=== PATIENT | female | born 1985 | race Caucasian/White ===

== ENCOUNTER 2018-02-06 08:05 | Inpatient (IN) | payer BC ==
--- NOTE | 2018-02-06 08:48 | HP ---
General Information - Reason for Visit Postdates IOL - General Information Maternal Age: 32 Grav: 1 Para: 0 SAB: 0 IEA: 0 Estimated Due Date: 01/30/18 Determined By: LMP Gestational Age in Weeks/Days: 41 weeks Maternal Blood Type and Rh: O Positive - Results this Serology/RPR Result: Non-Reactive Rubella Result: Immune HBsAg Result: Negative HIV Result: Negative GBS Culture Result: Negative Past Medical History Delivery History: See Records Delivery History Comment: primip Pertinent Past Medical History: See Records Past Medical History Comment: MVP Asthma Migraine with aura Costochondritis Narcolepsy with sleep paralysis Sleep apnea Pertinent Past Surgical History: None Pertinent Family History: See Records Family History Comment: Father: high cholesterol Mother: HTN, endometriosis Sister: Depression PGM: . lung cancer PGF: . PR MGM: . valvular cardiomyopathy and aortic valve disease - Antepartal Records Antepartal Records: Reviewed, Complicated by: - GDM - A1 Review of Systems Constitutional: Comfortable CV Complaint: No Respiratory: Shortness of Breath: No Gastrointestinal: No Nausea/Vomiting, Normal Bowel Movement Genitourinary: No Dysuria, No Bleeding, No Leaking Fluid, Spotting Musculoskeletal: No Complaint Neurological: No Headache, No Visual Changes Movement: Normal Exam Allergies/Adverse Reactions: Allergies amoxicillin Allergy (Verified 02/06/18 08:13) Rash Penicillins Allergy (Verified 02/06/18 08:13) Rash BP: 122/84 HR: 93 T: 98.4 RR: 18 SpO2: 100% on RA - Measurements Height: 5 ft 2 in Weight: 125 lb Weight in lbs: [phone] Body Mass Index (BMI): 22.8 Pre- Weight: 100 lb Weight Gained This : 25 lbs and 0 ozs - Exam Breast: Breast Exam Deferred CVA: No CVA Tenderness Extremities: No Edema Heart: Normal Rhythm/Heart Sounds - Known murmur, cardiology consult WNL in HEENT: No Significant Findings Lungs: Clear Bilaterally Rectal: Rectal Exam Deferred Reflexes: DTR 2+ Thyroid: No Thyromegaly - Abdominal Exam Abdomen Exam: Non-Tender, Fundal Height Consistent with Dates - Ultrasound/Biophysical Profile Ultrasound Status: Not Done Targeted Exam Findings See L&D Outpatient Visit Provider Note for Findings: Yes - Dated 02/05/18 Estimated Weight: 7-7.5lbs Cervical Exam: 2cm Effacement: 80% Station: +1 Presenting Part: Vertex - per Bre Flores CNM 02/05/18 with cervidil removal. Pt declines repeat exam this AM Membrane Status: Intact Sterile Speculum Exam: Not done Bleeding/Discharge: None EFM Findings - External Monitor Findings Baseline Heart Rate: 130 External Monitor Findings: Accelerations Present, No Pattern of Variable or Late Decelerations, Variability Moderate, Baseline Stable External Monitor Findings Comment: No evidence of metabolic acidemia Contractions: Irregular - mild Assessment/Plan - Assessment IUP at 41 weeks here for postdates IOL. Cervix favorable s/p Cervidil 02/05/2018 - Obstetrical Risk Factors Obstetrical Risk Factors: Post-Dates, Diabetes - A1 - Plan Plan: Induction Plan Comment: Admit. PARQ IV pitocin. Pt and agree. Will place IV and start IOL. Anticipate - Date/Time of Admission Date of Admission: 02/06/18 Time of Admission: 08:10
[2018-02-06] MEDS ORDERED: Buffered Lidocaine 0.9% SYRIN* 5 ML/SYR SYRINGE ONE (09:00)
[2018-02-06] MEDS ORDERED: Oxytocin in LR* 20 UNITS/1,000 ML BAG IVPB SCH ×2 (09:00→23:45)
--- NOTE | 2018-02-06 09:06 | PTEDU ---
Patient Name: ANA MARÍA CHILDERS ANA MARÍA CHILDERS selected video: Never Ever Shake a Baby to view on 02/06/2018 at 9:05:37 AM from [id number]
--- NOTE | 2018-02-06 09:29 | PTEDU ---
Patient Name: ANA MARÍA CHILDERS ANA MARÍA CHILDERS selected video: Never Ever Shake a Baby to view on 02/06/2018 at 9:28:39 AM from [id number]
[2018-02-06 09:34] LABS: ABS Basophils 0 10^3/ul (0-0.2); ABS Eosinophils 0 10^3/ul (0-0.6); ABS Lymphocytes 1.3 10^3/ul (1.0-4.8); ABS Monocytes 0.7 10^3/ul (0-0.8); ABS Neutrophils 10.5 10^3/ul (1.5-7.7); ABS Nucleated RBC 0 10^3/ul; Eosinophil % 0.2 % (0-6); Hematocrit 38 % (35-47); Hemoglobin 12.3 g/dl (12.0-16.0); Lymphocyte % 10.3 % (25-47); Mean Corpuscular HGB Conc 33 g/dl (31-36); Mean Corpuscular Hemoglobin 27 pg (27-31); Mean Corpuscular Volume 81 fL (80-97); Mean Platelet Volume 10.8 um3 (7.4-10.4); Nucleated Red Blood Cells % 0.1; Platelet Count 136 10^3/ul (150-450); Red Blood Count 4.63 10^6/ul (4.00-5.40); Red Cell Distribution Width 16 % (10.5-15); White Blood Count 12.5 10^3/ul (3.5-10.8)
[2018-02-06] MEDS ORDERED: OBEPIDURAL* 250 ML EPIDURAL ONE (15:47)
--- NOTE | 2018-02-06 15:53 | PN ---
Progress Note - Progress Note Date of Service: 02/06/18 Note: S: Pt increasingly uncomfortable since 1500. Might be interested in discussing pain mgmt options O: BP 119/86 HR 101 T 98.4 RR 18 FHT 130bpm. Moderate variability. +Accels. No decels UCs q 3min. IV pitocin reduced from 12mu/min to 6mu/min VE: difficult to assess due to pt discomfort A: IUP at 41 weeks in early active labor No evidence of metabolic acidemia P: Reviewed options for pain mgmt including hydrotherapy vs. IV pain medication vs. nitrous oxide vs. epdiural. All ?s answered. Pt requests epidural. Anesthesia paged for bedside consult. Will re-attempt VE once pt comfortable. Pt agrees.
[2018-02-06] MEDS ORDERED: Calcium Carbonate CHEW TAB* 500 MG (TUMS) PO ONE ×2 (16:50→20:32)
[2018-02-06] MEDS: Calcium Carbonate CHEW TAB* 500 MG (TUMS) ONE ×2 (16:52→20:30)
[2018-02-06] MEDS ORDERED: Sodium Citrate/Citric Acid* 15 ML UDC PO PRN (17:00)
[2018-02-06] MEDS ORDERED: Phenylephrine IV* 40 MCG/ML 10 ML SYRINGE IV PUSH PRN (17:00)
[2018-02-06] MEDS ORDERED: Famotidine IV* 10 MG/ML 2 ML (20 mg) IV PRN (17:00)
[2018-02-06] MEDS ORDERED: Famotidine TAB* 20 MG PO PRN (17:00)
[2018-02-06] MEDS ORDERED: OBEPIDURAL* 250 ML EPIDURAL SCH (17:00)
--- NOTE | 2018-02-06 18:05 | PN ---
Progress Note - Progress Note Date of Service: 02/06/18 Note: S: Pt more comfortable s/p epidural O: VSS, afebrile FHT: 130bpm. Moderate variability. +accels. No decels UCs q 3 min. IV pit at 6mu/min VE per Dr Bloom at 1724 6cm/100%/vtx +1 AROM clear A: IUP at 41 weeks in active labor No evidence of metabolic acidemia P: Continue IV pitocin. Anticipate
--- NOTE | 2018-02-06 20:34 | PN ---
Progress Note - Progress Note Date of Service: 02/06/18 Note: Quick Note Pt complete and pushing well with coaching. FHT Cat II with rare variable decels but moderate variability maintained. Anticipate
[2018-02-06] MEDS ORDERED: Glycerin ADULT SUPP PR PRN (23:51)
[2018-02-06] MEDS ORDERED: Acetaminophen TAB* 325 MG PO PRN (23:51)
--- NOTE | 2018-02-07 05:21 | PROCNOTE ---
[facility] OB: Delivery Note - Nursery Level of Nursery: Regular/Bedside - Perineum Perineal Injury: Right Mediolateral Perineal Repair: By Delivering Practioner - Events Delivery Events of Note: Pitocin During Labor, Pushed > 3 Hours Delivery Events of Note Comment: MULTIPLE VARIABLE DECELERATIONS WITH PUSHING / MODERATE VARIABILTY / MATERNAL EXHAUSTION AND INEFFECTIVE PUSHING. OPTION OF VACUM DELVERY DISCUSSED INCLUDING BUT NOT LIMITED TO TEARS OF SUPERFICIAL DEEP VEINS IN VERTEX/ PERINEAL INJURY / EPISIOTOMY NEED. QUESTIONS ANSWERED. - Additional Delivery Notes Additional Delivery Notes: REPAIR WITH 3-0 AND 2 VICRYL /3- VICRYL RAPIDE/ SPHINCTER INTACT/ NO STITCHES IN RECTUM
[2018-02-07 06:49] LABS: ABS Basophils 0 10^3/ul (0-0.2); ABS Eosinophils 0 10^3/ul (0-0.6); ABS Lymphocytes 1.4 10^3/ul (1.0-4.8); ABS Monocytes 1.1 10^3/ul (0-0.8); ABS Neutrophils 17.2 10^3/ul (1.5-7.7); ABS Nucleated RBC 0 10^3/ul; Eosinophil % 0 % (0-6); Hematocrit 28 % (35-47); Hemoglobin 9.1 g/dl (12.0-16.0); Mean Corpuscular HGB Conc 32 g/dl (31-36); Mean Corpuscular Hemoglobin 26 pg (27-31); Mean Corpuscular Volume 82 fL (80-97); Mean Platelet Volume 10.2 um3 (7.4-10.4); Nucleated Red Blood Cells % 0; Platelet Count 118 10^3/ul (150-450); Red Blood Count 3.45 10^6/ul (4.00-5.40); Red Cell Distribution Width 16 % (10.5-15); White Blood Count 19.8 10^3/ul (3.5-10.8)
[2018-02-07] MEDS ORDERED: Simethicone TAB* 80 MG TAB.CHEW PO SCH (08:30)
[2018-02-07] MEDS: Ferrous Gluconate TAB* 324 MG TAB PO SCH ×2 (09:24→21:28)
[2018-02-07] MEDS: Docusate CAP* 100 MG PO SCH ×3 (09:24→21:28)
[2018-02-07] MEDS: Ibuprofen TAB* 600 MG PO PRN ×3 (09:25→21:27)
[2018-02-07] MEDS: Witch Hazel PAD* JAR TOPICAL PRN (09:39)
[2018-02-07] MEDS: Dibucaine 1% 28.35 GM TUBE PR PRN (09:39)
[2018-02-08 08:14] VITALS: BP 122/80
[2018-02-08] MEDS: Ferrous Gluconate TAB* 324 MG TAB PO SCH (08:24)
[2018-02-08] MEDS: Ibuprofen TAB* 600 MG PO PRN ×2 (08:25→14:17)
[2018-02-08] MEDS: Docusate CAP* 100 MG PO SCH ×2 (08:26→14:03)
[2018-02-08] MEDS: Witch Hazel PAD* JAR TOPICAL PRN (13:16)
[2018-02-08] MEDS: Dibucaine 1% 28.35 GM TUBE PR PRN (13:16)
== END 2018-02-08 17:07 | disposition home or self-care (01) | DRG 560 ==
LOC: MCHOBOUT 08:05 → MCHOB 08:10
PROVIDERS: ADMIT Midwife; ATTEND Obstetrics & Gynecology
PROC: 10E0XZZ Delivery of Products of Conception, External Approach (ICD-10-PCS; principal; 2018-02-06)
PROC: 3E033VJ Introduction of Other Hormone into Peripheral Vein, Percutaneous Approach (ICD-10-PCS; 2018-02-06)
PROC: 10907ZC Drainage of Amniotic Fluid, Therapeutic from Products of Conception, Via Natural or Artificial Opening (ICD-10-PCS; 2018-02-06)
PROC: 0W8NXZZ Division of Female Perineum, External Approach (ICD-10-PCS; 2018-02-06)
DX: O48.0 Post-term pregnancy (principal); Z37.0 Single live birth; O75.81 Maternal exhaustion complicating labor and delivery; O24.429 Gestational diabetes mellitus in childbirth, unspecified control; G47.419 Narcolepsy without cataplexy; Z3A.41 41 weeks gestation of pregnancy
CPT/HCPCS: 36415; 85025; 86850; 86900; 86901; A9270-GY

== ENCOUNTER 2018-03-14 12:12 | Emergency (ER) | payer BC ==
[2018-03-14] MEDS ORDERED: NS 0.9% 1000 ML*IV.FLUID IV ONE (12:18)
[2018-03-14 12:42] LABS: ABS Basophils 0 10^3/ul (0-0.2); ABS Eosinophils 0.1 10^3/ul (0-0.6); ABS Lymphocytes 0.9 10^3/ul (1.0-4.8); ABS Monocytes 0.8 10^3/ul (0-0.8); ABS Neutrophils 10.1 10^3/ul (1.5-7.7); ABS Nucleated RBC 0 10^3/ul; Eosinophil % 0.7 % (0-6); Hematocrit 36 % (35-47); Hemoglobin 11.6 g/dl (12.0-16.0); Lymphocyte % 7.4 % (25-47); Mean Corpuscular HGB Conc 32 g/dl (31-36); Mean Corpuscular Hemoglobin 25 pg (27-31); Mean Corpuscular Volume 79 fL (80-97); Mean Platelet Volume 8.4 fL (7.4-10.4); Nucleated Red Blood Cells % 0; Platelet Count 280 10^3/ul (150-450); Red Blood Count 4.58 10^6/ul (4.00-5.40); Red Cell Distribution Width 16 % (10.5-15); White Blood Count 11.8 10^3/ul (3.5-10.8)
[2018-03-14 12:50] LABS: INR 0.98 (0.77-1.02)
--- NOTE | 2018-03-14 15:18 | ED ---
HPI Febrile Illness - HPI Summary HPI Summary: Patient presents per request of Dr. Todd for U/S as he's been following her for a left breast mastitis. She was taking clindamycin last week and has completed the course however she has developed a fever this morning of 101F and had chills last night. Her heart rate also appears to be elevated at time of check in today. Her blood pressure is stable. She is currently afebrile although she reports she took ibuprofen prior to arrival. She denies any upper extremity pain or swelling as well as chest pain, shortness of breath, upper back or lower back pain, and abdominal pain. Aside from antibiotics for her mastitis, she is been going to physical therapy and receiving ultrasound. This seemed to be getting better until today. She was also recently diagnosed with UTI by [employer] ACC[employer] MANAGER which returned with 1-10,000 MRSA. She was started on Bactrim and feels her symptoms are improving although they were mild to begin with. She is 5 weeks with a vaginal delivery requiring episiotomy. She was seen for post delivery follow- up by the midwives and her vaginal area is healing well. She denies any concern for new vaginal swelling, pain, discharge. She has been pumping exclusively as her infant is having a difficult time latching. - History of Current Complaint Chief Complaint: EDGeneral Time Seen by Provider: 03/14/18 12:20 Hx Obtained From: Patient Pain Intensity: 3 - Allergy/Home Medications Allergies/Adverse Reactions: Allergies Allergy/AdvReac Type Severity Reaction Status Date / Time amoxicillin Allergy Rash Verified 03/14/18 12:14 Penicillins Allergy Rash Verified 03/14/18 12:14 PMH/Surg Hx/FS Hx/Imm Hx Previously Healthy: No - mastitis, Lt side; UTI Endocrine/Hematology History: Denies: Hx Anticoagulant Therapy, Hx Blood Disorders, Autoimmune Disease - Immunization History Immunizations Up to Date: Yes Infectious Disease History: No Infectious Disease History: Denies: Traveled Outside the [place] in Last 30 Days - Social History Occupation: Employed Full-time - [employer] - on maternity leave Lives: With Family Alcohol Use: None Hx Substance Use: No Substance Use Type: Reports: None Hx Tobacco Use: No Smoking Status (MU): Never Smoked Tobacco Review of Systems Positive: Fever, Chills Cardiovascular: Negative Respiratory: Negative Gastrointestinal: Negative Positive: see HPI Skin: Other - mastitis Psychological: Normal All Other Systems Reviewed And Are Negative: Yes Physical Exam Triage Information Reviewed: Yes Vital Signs On Initial Exam: Initial Vitals Temp Pulse Resp BP Pulse Ox 99.8 F 111 16 111/65 96 03/14/18 12:14 03/14/18 12:14 03/14/18 12:14 03/14/18 12:14 03/14/18 12:14 Vital Signs Reviewed: Yes Appearance: Positive: Well-Appearing, No Pain Distress, Well-Nourished, Thin Skin: Positive: Warm, Skin Color Reflects Adequate Perfusion, Dry - no paul erythema or lesions about the breasts; there is an area of induration that is tender to palpation over the sternal aspect of the Lt breast - pt points out this is where she's been having pain Head/Face: Positive: Normal Head/Face Inspection Eyes: Positive: EOMI ENT: Positive: Hearing grossly normal, Pharynx normal - mucosa moist Respiratory/Lung Sounds: Positive: Breath Sounds Present Cardiovascular: Positive: Pulses are Symmetrical in both Upper and Lower Extremities - no UE edema, S1, S2. Negative: Murmur, Rub Abdomen Description: Positive: Nontender, No Organomegaly, Soft Bowel Sounds: Positive: Present Pelvic Exam: Positive: Other - deferred Musculoskeletal: Positive: Normal, Strength/ROM Intact Neurological: Positive: Normal, Sensory/Motor Intact, Alert, Oriented to Person Place, Time, CN Intact II-III Psychiatric: Positive: Anxious - but consolable, pleasant and cooperative - admits she's tired and frustrated w/ breast issues Diagnostics - Vital Signs Vital Signs Temp Pulse Resp BP Pulse Ox 03/14/18 12:14 99.8 F 111 16 111/65 96 - Laboratory Lab Results: Lab Results 03/14/18 03/14/18 03/14/18 Range/Units 12:31 12:31 12:31 WBC 11.8 H (3.5-10.8) 10^3/ul RBC 4.58 (4.00-5.40) 10^6/ul Hgb 11.6 L (12.0-16.0) g/dl Hct 36 (35-47) % MCV 79 L (80-97) fL MCH 25 L (27-31) pg MCHC 32 (31-36) g/dl RDW 16 H (10.5-15) % Plt Count 280 (150-450) 10^3/ul MPV 8.4 (7.4-10.4) fL Neut % (Auto) 85.0 H (38-83) % Lymph % (Auto) 7.4 L (25-47) % [place] % (Auto) 6.6 (0-7) % Eos % (Auto) 0.7 (0-6) % Baso % (Auto) 0.3 (0-2) % Absolute Neuts (auto) 10.1 H (1.5-7.7) 10^3/ul Absolute Lymphs (auto) 0.9 L (1.0-4.8) 10^3/ul Absolute Monos (auto) 0.8 (0-0.8) 10^3/ul Absolute Eos (auto) 0.1 (0-0.6) 10^3/ul Absolute Basos (auto) 0 (0-0.2) 10^3/ul Absolute Nucleated RBC 0 10^3/ul Nucleated RBC % 0 INR (Anticoag Therapy) 0.98 (0.77-1.02) APTT 31.4 (26.0-36.3) seconds Sodium 136 (135-145) mmol/L Potassium 3.7 (3.5-5.0) mmol/L Chloride 103 (101-111) mmol/L Carbon Dioxide 24 (22-32) mmol/L Anion Gap 9 (2-11) mmol/L BUN 9 (6-24) mg/dL Creatinine 0.85 (0.51-0.95) mg/dL Est GFR ( Amer) 94.4 (>60) Est GFR (Non-Af Amer) 78.0 (>60) BUN/Creatinine Ratio 10.6 (8-20) Glucose 130 H (70-100) mg/dL Lactic Acid (0.5-2.0) mmol/L Calcium 9.7 (8.6-10.3) mg/dL Total Bilirubin 0.20 (0.2-1.0) mg/dL AST 19 (13-39) U/L ALT 18 (7-52) U/L Alkaline Phosphatase 145 H (34-104) U/L C-Reactive Protein 9.24 H (<8.01) mg/L Total Protein 7.7 (6.4-8.9) g/dL Albumin 4.3 (3.2-5.2) g/dL Globulin 3.4 (2-4) g/dL Albumin/Globulin Ratio 1.3 (1-3) 03/14/18 Range/Units 12:31 WBC (3.5-10.8) 10^3/ul RBC (4.00-5.40) 10^6/ul Hgb (12.0-16.0) g/dl Hct (35-47) % MCV (80-97) fL MCH (27-31) pg MCHC (31-36) g/dl RDW (10.5-15) % Plt Count (150-450) 10^3/ul MPV (7.4-10.4) fL Neut % (Auto) (38-83) % Lymph % (Auto) (25-47) % [place] % (Auto) (0-7) % Eos % (Auto) (0-6) % Baso % (Auto) (0-2) % Absolute Neuts (auto) (1.5-7.7) 10^3/ul Absolute Lymphs (auto) (1.0-4.8) 10^3/ul Absolute Monos (auto) (0-0.8) 10^3/ul Absolute Eos (auto) (0-0.6) 10^3/ul Absolute Basos (auto) (0-0.2) 10^3/ul Absolute Nucleated RBC 10^3/ul Nucleated RBC % INR (Anticoag Therapy) (0.77-1.02) APTT (26.0-36.3) seconds Sodium (135-145) mmol/L Potassium (3.5-5.0) mmol/L Chloride (101-111) mmol/L Carbon Dioxide (22-32) mmol/L Anion Gap (2-11) mmol/L BUN (6-24) mg/dL Creatinine (0.51-0.95) mg/dL Est GFR ( Amer) (>60) Est GFR (Non-Af Amer) (>60) BUN/Creatinine Ratio (8-20) Glucose (70-100) mg/dL Lactic Acid 1.6 (0.5-2.0) mmol/L Calcium (8.6-10.3) mg/dL Total Bilirubin (0.2-1.0) mg/dL AST (13-39) U/L ALT (7-52) U/L Alkaline Phosphatase (34-104) U/L C-Reactive Protein (<8.01) mg/L Total Protein (6.4-8.9) g/dL Albumin (3.2-5.2) g/dL Globulin (2-4) g/dL Albumin/Globulin Ratio (1-3) Result Diagrams: 03/14/18 12:31 03/14/18 12:31 Lab Statement: Any lab studies that have been ordered have been reviewed, and results considered in the medical decision making process. Re-Evaluation - Re-Evaluation First Eval Change: Improved Course/Dx - Course Course Of Treatment: Lt breast U/S: complex fluid collection appears to be abscess 4.1cm. Discussed w/ Dr. Todd who agrees to aspirate - asst'd in procedure - time out completed and procedure completed by Dr. Todd - ~5cc collection of seropurulent drainage from abscess in Lt breast - minimal blood loss - sent for cx. Pt tolerated well. Pt will continue bactrim for breast infection until cx returns. Also discussed repeating urine assessment to make sure this wasn't contributing to fever, etc. Pt agrees to complete however urine order appears to have been cancelled and no urine collected for review. Pt was also informed to f/u w/ [employer] ACCOUNT MANAGER re: this infection. NOTE: pt consolable and arrived to be with her as well. She has support at home and no reports of SI/HI. - Diagnoses Provider Diagnoses: Left breast abscess Discharge - Sign-Out/Discharge Documenting (check all that apply): Patient Departure - Discharge Plan Condition: Stable Disposition: HOME Prescriptions: RX: Ibuprofen TAB* [Motrin TAB* 600 MG] 600 mg PO Q6H PRN #20 tab PRN Reason: Pain Patient Education Materials: Abscess Incision and Drainage (DC) Referrals: Fabian Todd MD [Medical Doctor] - Additional Instructions: Today you underwent an aspiration of your abscess. Keep area clean and covered until heals. Follow-up with Dr. Todd on Friday. Call office in the morning to schedule an appointment. Your culture results should return in the next 2 days. If you do not receive a call from the emergency department about your results, they will be discussed with Dr. Todd's office. Continue Bactrim in the meantime. You were also prescribed ibuprofen for pain and swelling. Take with food. Additionally, a repeat urine culture was taken today. If infection is worse, you will receive a call. You may also follow-up with your PCP or OBGYN to discuss results in more detail. *If you develop return of fever, intractable pain, upper extremity swelling, chest pain, generalized weakness, return to the ED - Billing Disposition and Condition Condition: STABLE Disposition: Home
[2018-03-14 15:51] VITALS: BP 129/88
--- NOTE | 2018-03-15 05:17 | OP ---
CC: Dr. Fabian Todd; ORDER CALLER associates. OPERATIVE REPORT: DATE OF OPERATION: 03/14/18. DATE OF : [birth year]. SURGEON: Fabian Todd MD. PRINCIPAL ARCHITECTURAL FIRM: None. ANESTHESIOLOGIST: None. PRE-OP DIAGNOSIS: Left breast abscess. POST-OP DIAGNOSIS: Left breast abscess. OPERATIVE PROCEDURE: Aspiration of left breast abscess. INDICATIONS: The patient is a 32-year-old female who is familiar to me from an outpatient treatment for left mastitis. She is currently lactating and feeding breast milk via the bottle. She has had m astitis symptoms for about 2 weeks. She was treated for about a week of clindamycin and said she had 50% improvement. I saw her in the office recently and at that point, she had also had urinary sympt oms and had a positive urinalysis so was put on Bactrim and we decided at that point to try the Bactr im to see if that created additional improvement. However, this morning, she had chills and fever to 101 and so I recommended she come to the hospital. She had a white blood count which was just a jackie vation. She had a temperature of 99.5 here but again 101 at home. The breast exam today was similar to the recent one in the office, still some erythema and induration of the left upper inner quadrant but nothing very impressive mild tenderness, no fluctuance. We did obtain a breast ultrasound which appeared to show a complex fluid pocket consistent with early abscess. DESCRIPTION OF PROCEDURE: I discussed this with her and we decided that aspiration of the breast wou ld be carried out, attempting to get culture. So the area was prepped with alcohol, a small wheal of lidocaine was placed and an 18 gauge needle was used to aspirate the palpable indurated area and few milliliters of bloody, creamy pus was obtained. Sample was sent for Gram stain and culture. [place] e was placed. She tolerated this well. She will be discharged home and continue on the Bactrim and I will be in touch with her once we have the results from the culture to assess the suitability of co ntinuing the Bactrim. She knows to call if she has any additional questions or concerns. [id number]/[facility] #: [id number]
--- NOTE | 2018-03-17 06:05 | PN ---
Progress Note - Progress Note Date of Service: 03/14/18 Note: Pt. evaluated in ED 03/14 for left breast abscess. Area was aspirated by surgery. She is currently on Bactrim. Wound culture obtained at that time and is growing e. coli susceptible to bactrim. No change in treatment needed at this time.
== END 2018-03-14 15:50 | disposition home or self-care (01) ==
LOC: ED 12:12
DX: N61.1 Abscess of the breast and nipple (principal)
CPT/HCPCS: 10060; 36415; 80053; 83605; 85025; 85610; 85730; 86140; 87040; 87070; 87077; 87186; 87205; 96360; 99282

== ENCOUNTER 2019-12-16 09:39 | Inpatient (IN) ==
[2019-12-16] MEDS ORDERED: Lactated Ringers 1000 ml BAG 1,000 ML IV ONE ×2 (11:11→19:32)
[2019-12-16] MEDS ORDERED: Buffered Lidocaine 1% SYRIN 1 ml INTRADERM ONE (11:28)
[2019-12-16] MEDS ORDERED: Lactated Ringers 1000 ml BAG 1,000 ML IV SCH ×2 (12:00→20:00)
[2019-12-16] MEDS ORDERED: Oxytocin in LR 20 UNITS/1,000 ML BAG IVPB SCH (12:00)
[2019-12-16 12:44] LABS: ABS Lymphocytes 1.5 10^3/ul (1.0-4.8); ABS Monocytes 0.4 10^3/ul (0-0.8); ABS Neutrophils 6.1 10^3/ul (1.5-7.7); Eosinophil % 0.1 %; Hematocrit 33 % (35-47); Hemoglobin 10.7 g/dL (12.0-16.0); Lymphocyte % 18.9 %; Mean Corpuscular HGB Conc 33 g/dL (31-36); Mean Corpuscular Hemoglobin 26 pg (27-31); Mean Corpuscular Volume 81 fL (80-97); Mean Platelet Volume 9.9 fL (7.4-10.4); Platelet Count 151 10^3/uL (150-450); Red Blood Count 4.05 10^6 /uL (3.70-4.87); Red Cell Distribution Width 16 % (10-15)
[2019-12-16 13:25] LABS: Urine Benzodiazepine Screen None Detected (None Detect); Urine Cannabinoids Screen None Detected (None Detect); Urine Opiates Screen None Detected (None Detect)
[2019-12-16] MEDS ORDERED: OBEPIDURAL 250 ML EPIDURAL ONE (18:44)
[2019-12-16] MEDS ORDERED: Phenylephrine 40 mcg/mL 10mL (400mcg) SYRINGE IV PUSH PRN ×2 (19:32)
[2019-12-16] MEDS ORDERED: Sodium Citrate/Citric Acid LIQ 15 ML UDC PO PRN (19:32)
[2019-12-16] MEDS ORDERED: EPHEDrine (Pressors) 50 MG/ML VIAL IV PUSH PRN ×2 (19:32)
[2019-12-16] MEDS ORDERED: OBEPIDURAL 250 ML EPIDURAL SCH (20:00)
[2019-12-16] MEDS ORDERED: Lidocaine 2% w/ EPI 1:200,000 MPF 20 ML SDV VIAL ONE (22:14)
[2019-12-17] MEDS ORDERED: Witch Hazel PAD JAR TOPICAL PRN (02:02)
[2019-12-17] MEDS ORDERED: Dibucaine 1% OINT 28.35 GM TUBE PR PRN (02:02)
[2019-12-17] MEDS ORDERED: Glycerin ADULT 2.4 gm SUPP PR PRN (02:02)
[2019-12-17] MEDS ORDERED: Lactated Ringers 1000 ml BAG 1,000 ML IV SCH (03:00)
[2019-12-17] MEDS ORDERED: Oxytocin in LR 20 UNITS/1,000 ML BAG IVPB SCH (03:00)
[2019-12-17] MEDS ORDERED: Lidocaine 1% VIAL 10 MG/ML VIAL ONE (04:26)
[2019-12-18 07:44] VITALS: BP 131/85
[2019-12-18 08:50] LABS: ABS Eosinophils 0.1 10^3/ul (0-0.6); ABS Lymphocytes 1.6 10^3/ul (1.0-4.8); ABS Monocytes 0.6 10^3/ul (0-0.8); Eosinophil % 0.6 %; Hematocrit 31 % (35-47); Hemoglobin 9.9 g/dL (12.0-16.0); Lymphocyte % 17.5 %; Mean Corpuscular HGB Conc 32 g/dL (31-36); Mean Corpuscular Hemoglobin 26 pg (27-31); Mean Corpuscular Volume 81 fL (80-97); Platelet Count 144 10^3/uL (150-450); Red Blood Count 3.77 10^6 /uL (3.70-4.87); Red Cell Distribution Width 16 % (10-15); White Blood Count 9.3 10^3/uL (3.5-10.8)
== END 2019-12-18 14:20 | disposition home or self-care (01) | DRG 560 ==
LOC: MCHOBOUT 09:39 → MCHOB 11:10
PROVIDERS: ADMIT Midwife; ATTEND Midwife